=== PATIENT | male | born 1975 | race Caucasian/White ===

== ENCOUNTER 2021-09-03 04:47 | Emergency (ER) | payer SELFPAY ==
[2021-09-03] MEDS ORDERED: Sodium Chloride 0.9% 10 ML Syringe FLUSH PRN (05:04)
[2021-09-03] MEDS: Aspirin 81 MG Tab.Chew PO ONE (05:13)
[2021-09-03] MEDS: Albuterol 0.083% 2.5 MG/3 ML Neb Soln NEB ONE (06:24)
[2021-09-03 06:25] LABS: ANION GAP 11.6 meq/L (7-15); CHLORIDE,CL 101 mmol/L (98-107); SODIUM,NA 139 mmol/L (136-145)
== END 2021-09-03 07:22 | disposition home or self-care (01) ==
LOC: LL.ED 04:47
DX: J06.9 Acute upper respiratory infection, unspecified (principal); R06.02 Shortness of breath; Z87.891 Personal history of nicotine dependence; Z20.822 Contact with and (suspected) exposure to COVID-19
CPT/HCPCS: 36415; 71046; 80053; 83735; 84443; 84484; 85025; 85379; 93005; 93010; 99284; 99285-25; A9270-GY; J7613-GY; U0002